=== PATIENT | female | born 1955 | race Caucasian/White ===

== ENCOUNTER → 2019-10-09 13:53 | Outpatient (CLI) | payer MEDICARE, SELFPAY ==
--- NOTE | 2019-10-09 | DI.RAD.S_ITS ---
PROCEDURE: XR KNEE RT 3V INDICATIONS: fall, unable to bear weight, rt knee TECHNIQUE: 3 views of the knee were acquired. COMPARISON: None. FINDINGS: Bones: No dislocations. No suspicious bony lesions. There is a vertically oriented fracture involving the lateral facet of the patellofemoral joint, which on the lateral view is associated with a moderate joint effusion Soft tissues: No joint effusion. No suspicious soft tissue calcifications. IMPRESSION: Vertically oriented minimally displaced patellar fracture laterally, secondary joint effusion is associated. No intra-articular loose body. Note: It was difficult to contact the ordering health care provider and a phone number was obtained of the patient. I was able to speak personally with the patient and informed her that she does in fact have a fracture that may necessitate orthopedic surgical consultation or intervention. The patient provided a phone number to the office through which the practitioner provides health care and I also personally contacted the credit support counselor at that office with this information. I have requested that the practitioner contact the patient directly for further consultation. Dictated by: James Newton M.D. on 10/09/2019 at 14:38 Approved by: James Newton M.D. on 10/09/2019 at 14:39
== END ==
PROVIDERS: Referring Provider Nurse Practitioner Family; Visit Provider Nurse Practitioner Family
DX: M25.561 Pain in right knee (principal); S82.091A Other fracture of right patella, initial encounter for closed fracture; W19.XXXA Unspecified fall, initial encounter
CPT/HCPCS: 73562

== ENCOUNTER 2020-08-15 19:58 | Emergency (ER) | payer MEDICARE, SELFPAY ==
[2020-08-15] VITALS (10 sets, daily range): BP systolic 154–206; BP diastolic 74–91; PULSE 58–91; RESP 16–24; TEMP 36.5; O2SAT 91–100; BMI 25.9
--- NOTE | 2020-08-15 20:07 | DI.RAD.S_ITS ---
PROCEDURE: XR CHEST 1V INDICATIONS: chest pain TECHNIQUE: One view of the chest was acquired. COMPARISON: None. FINDINGS: Surgical changes and devices: None. Lungs and pleura: Lungs are clear. No pleural effusions or pneumothorax. Mediastinum: Mediastinal contours appear normal. Heart size is normal. Bones and chest wall: No suspicious bony lesions. Overlying soft tissues appear unremarkable. IMPRESSION: No acute cardiopulmonary abnormalities or focal airspace disease. There are no imaging findings to explain patient's chest pain. Dictated by: Kody Lima M.D. on 08/15/2020 at 20:39 Approved by: Kody Lima M.D. on 08/15/2020 at 20:40
[2020-08-15 20:25] LABS: Add Manual Diff / Slide Review NO; Basophils Absolute Auto 100 /uL (0-100); Basophils Percent Auto 1.5 % (0-2); Eosinophils Absolute Auto 100 /uL (0-450); Eosinophils Percent Auto 1.2 % (2-4); Hematocrit 44.8 % (36-46); Hemoglobin 15.3 g/dL (12.0-16.0); INR 1.1 (0.9-1.3); Lymphocytes Absolute Auto 3000 /uL (1100-4500); Mean Corpuscular HGB Conc 34.2 % (30-36); Mean Corpuscular Hemoglobin 32.1 PG (26-34); Mean Corpuscular Volume 93.9 fL (80-100); Monocytes Absolute Auto 400 /uL (0-900); Monocytes Percent Auto 5.8 % (3-14); Neutrophils Absolute Auto 4000 /uL (1500-7000); Neutrophils Percent Auto 52.5 % (50-75); Platelet Count 234 X10^3/uL (150-400); Prothrombin Time 12.3 SECONDS (10.1-12.7); Red Blood Cell Count 4.77 X10^6/uL (4.0-5.2); Red Cell Distribution Width 13.3 % (11.6-14.8); White Blood Cell Count 7.6 X10^3/uL (4.5-11.0)
[2020-08-15 20:28] LABS: PTT Partial Thromboplastin Tim 32 SECONDS (26.4-36.2)
[2020-08-15 20:33] LABS: Alanine Aminotransferase 15 IU/L (<35); Albumin 4.6 g/dL (3.5-5.0); Albumin Globulin Ratio 1.5 (1.0-2.8); Alkaline Phosphatase 98 U/L (38-126); Aspartate Aminotransferase 29 IU/L (14-36); BUN Creatinine Ratio 20.4 (6-22); Bilirubin Total 0.2 mg/dL (0.2-1.3); Blood Urea Nitrogen 20 mg/dL (7-17); Calcium 9.7 mg/dL (8.4-10.2); Carbon Dioxide 33 mmol/L (22-32); Chloride 101 mmol/L (98-107); Creatine Kinase 70 U/L (30-135); Estimated Glomerular Filt Rate 56.6 mL/min (>60); Globulin 3.1 g/dL (1.7-4.1); Glucose 143 mg/dL (80-110); HEMOLYSIS < 15 (0-50); Lipase 231 U/L (23-300); Sodium 139 mmol/L (137-145); Total Protein 7.7 g/dL (6.3-8.2)
[2020-08-15 20:44] LABS: Troponin I < 0.012 ng/mL (0.01-0.034)
--- NOTE | 2020-08-15 21:11 | ED.CHESTPAIN ---
HPI - Chest Pain General Chief Complaint: Chest Pain Stated Complaint: panic attack or heart attack, she is not sure Time Seen by Provider: 08/15/20 21:11 Source: patient and other (friend Geraldine at bedside) Mode of arrival: Ambulatory Limitations: no limitations History of Present Illness HPI narrative: This is a 65-year-old female comes emergency department with complaint of possible panic attack but patient states it feels different from her typical. Patient states that she developed and sweats and hot flashes this evening. She developed some epigastric abdominal pain, breast pain which she describes as being right around the area of the areola but also some discomfort in her back. As well as a little discomfort in her anterior chest. Patient is unaware if she has had any actual fevers. She denies any shortness of breath. She denies any nausea, no vomiting. No diarrhea constipation. She has not had any urinary symptoms. Patient states it started about 5 or 530 this evening. She states that it is improved but is still present. She states she did have a fall last week. Patient states she has had multiple falls and has been following up with a neurologist and neuro psychiatrist for testing. 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 She was told that they believe these falls are secondary to this. Patient states she is not on medications otherwise for anything else. She sets other than her brain tumor excision she has had hand surgery for traumatic injury. She denies tobacco, alcohol or illicit. Her primary care physician is CHUYITA Kelly who works in Dr. Chatman's office. Related Data Allergies Allergy/AdvReac Type Severity Reaction Status Date / Time tetracycline Allergy Verified 08/15/20 20:06 Review of Systems Review of Systems ROS Unobtainable: All systems reviewed & are unremarkable except as noted in HPI and below Patient History Social History Smoking Status: Unknown if ever smoked Smoking Status: Unknown if ever smoked alcohol intake frequency: a few times a month Substance Use Type: does not use Exam Narrative Exam Narrative: GENERAL: Alert and oriented x three, thin elderly appearing female in mild distress. HEENT: Head normocephalic, atraumatic, EOMI, pupils reactive, face symmetric, moist mucous membranes NECK: Supple, full range of motion CARDIOVASCULAR: Regular rate and rhythm without murmurs, rubs or gallops. Patient has reproducible anterior chest pain at the sternum. Unable to reproduce chest discomfort in the breast tissue. There is no masses appreciated on breast exam. RESPIRATORY: Breath sounds equal bilaterally, no wheezes rales or rhonchi. ABDOMEN: Soft, nontender. Normoactive bowel sounds all 4 quadrants. No guarding or rebound, rigidity, no mass : No CVA tenderness BACK: No cervical, thoracic or lumbar vertebral point tenderness. EXTREMITIES: Normal range of motion, no clubbing or edema. Neurovascularly intact NEUROLOGICAL: Cranial nerves II through XII grossly intact. Moving all extremities. Patient has mild tremor. SKIN: Warm, dry, no petechiae, no rashes or lesions. Initial Vital Signs Initial Vital Signs: Vital Signs Temperature 97.7 F 08/15/20 20:00 Pulse Rate 91 H 08/15/20 20:00 Respiratory Rate 16 08/15/20 20:00 Blood Pressure 191/91 H 08/15/20 20:00 Pulse Oximetry 96 08/15/20 20:00 Scores HEART Score Heart Score history: Slightly Suspicious Heart Score EKG: Non-Specific repolarization disturbance Heart Score Age: > or = 65 years old Heart Score risk factors: No known risk factors Heart Score troponin: < or = to normal limit Heart Score Total: 3 Course Orders Ordered: ED Orders 08/15/20 21:45 COVID19 Stat 08/15/20 22:00 Urine Microscopic Stat 08/15/20 22:16 Troponin I Stat 08/15/20 23:01 EKG-12 Lead Stat Reevaluation(s) Reevaluation #1: patient BP has improved, reviewed labs and imaging today. Discussed with patient I do not have a clear cause for her symptoms but have not found any acute changes. Patient feels comfortable returning home at this time. Plan for return precautions. She has follow-up with her primary care on Monday at 9:00 a.m. Patient BP also improved in the department. Time: 23:17 Vital Signs Vital signs: Vital Signs - 8 hr 08/15/20 21:30 08/15/20 21:42 08/15/20 22:03 Pulse Rate 69 59 L 59 L Respiratory Rate 20 23 23 Blood Pressure 206/86 H Pulse Oximetry 97 97 91 08/15/20 22:04 03/06/21 22:30 08/15/20 23:00 Pulse Rate 58 L 65 64 Respiratory Rate 18 23 22 Blood Pressure 173/74 H 163/85 H 154/80 H Pulse Oximetry 97 97 97 MDM - Chest Pain Lab Data Attestation: I reviewed the patient's lab results. Result diagrams: 08/15/20 20:10 08/15/20 20:10 Labs: Lab Results 08/15/20 08/15/20 08/15/20 Range/Units 20:10 20:10 20:10 WBC 7.6 (4.5-11.0) X10^3/uL RBC 4.77 (4.0-5.2) X10^6/uL Hgb 15.3 (12.0-16.0) g/dL Hct 44.8 (36-46) % MCV 93.9 (80-100) fL MCH 32.1 (26-34) PG MCHC 34.2 (30-36) % RDW 13.3 (11.6-14.8) % Plt Count 234 (150-400) X10^3/uL Neut % (Auto) 52.5 (50-75) % Lymph % (Auto) 39.0 (25-40) % Wal[place] % (Auto) 5.8 (3-14) % Eos % (Auto) 1.2 L (2-4) % Baso % (Auto) 1.5 (0-2) % Neut # (Auto) 4000 (8745-9403) /uL Lymph # (Auto) 3000 (6135-4877) /uL [place] # (Auto) 400 (0-900) /uL Eos # (Auto) 100 (0-450) /uL Baso # (Auto) 100 (0-100) /uL PT 12.3 (10.1-12.7) SECONDS INR 1.1 (0.9-1.3) APTT 32 (26.4-36.2) SECONDS Sodium 139 (137-145) mmol/L Potassium 4.0 (3.4-5.1) mmol/L Chloride 101 (98-107) mmol/L Carbon Dioxide 33 H (22-32) mmol/L BUN 20 H (7-17) mg/dL Creatinine 0.98 (0.52-1.04) mg/dL Estimated GFR 56.6 L (>60) mL/min BUN/Creatinine Ratio 20.4 (6-22) Glucose 143 H (80-110) mg/dL Calcium 9.7 (8.4-10.2) mg/dL Total Bilirubin 0.2 (0.2-1.3) mg/dL AST 29 (14-36) IU/L ALT 15 (<35) IU/L Alkaline Phosphatase 98 (38-126) U/L Total Creatine Kinase 70 (30-135) U/L CK-MB (CK-2) TNP CK-MB (CK-2) Rel Index TNP Troponin I < 0.012 (0.01-0.034) ng/mL Total Protein 7.7 (6.3-8.2) g/dL Albumin 4.6 (3.5-5.0) g/dL Globulin 3.1 (1.7-4.1) g/dL Albumin/Globulin Ratio 1.5 (1.0-2.8) Lipase 231 (23-300) U/L Urine RBC (0-5/HPF) Urine WBC (0-5/HPF) Urine Bacteria (None) Ur Culture Indicated? SARS-CoV-2 (PCR) (Negative) 08/15/20 08/15/20 08/15/20 Range/Units 21:45 22:00 22:16 WBC (4.5-11.0) X10^3/uL RBC (4.0-5.2) X10^6/uL Hgb (12.0-16.0) g/dL Hct (36-46) % MCV (80-100) fL MCH (26-34) PG MCHC (30-36) % RDW (11.6-14.8) % Plt Count (150-400) X10^3/uL Neut % (Auto) (50-75) % Lymph % (Auto) (25-40) % [place] % (Auto) (3-14) % Eos % (Auto) (2-4) % Baso % (Auto) (0-2) % Neut # (Auto) (5171-4815) /uL Lymph # (Auto) (7942-5064) /uL Waldo # (Auto) (0-900) /uL Eos # (Auto) (0-450) /uL Baso # (Auto) (0-100) /uL PT (10.1-12.7) SECONDS INR (0.9-1.3) APTT (26.4-36.2) SECONDS Sodium (137-145) mmol/L Potassium (3.4-5.1) mmol/L Chloride (98-107) mmol/L Carbon Dioxide (22-32) mmol/L BUN (7-17) mg/dL Creatinine (0.52-1.04) mg/dL Estimated GFR (>60) mL/min BUN/Creatinine Ratio (6-22) Glucose (80-110) mg/dL Calcium (8.4-10.2) mg/dL Total Bilirubin (0.2-1.3) mg/dL AST (14-36) IU/L ALT (<35) IU/L Alkaline Phosphatase (38-126) U/L Total Creatine Kinase (30-135) U/L CK-MB (CK-2) CK-MB (CK-2) Rel Index Troponin I < 0.012 (0.01-0.034) ng/mL Total Protein (6.3-8.2) g/dL Albumin (3.5-5.0) g/dL Globulin (1.7-4.1) g/dL Albumin/Globulin Ratio (1.0-2.8) Lipase (23-300) U/L Urine RBC 0-1/hpf (0-5/HPF) Urine WBC None seen (0-5/HPF) Urine Bacteria None seen (None) Ur Culture Indicated? Cult not indicated SARS-CoV-2 (PCR) Negative (Negative) Urine Dip Bedside Urine Glucose Negative Bedside Urine Bilirubin - Negative Bedside Urine Ketone - Negative Urine Specific [place] 1.025 Bedside Urine Occult Blood - Negative Bedside Urine pH 6 Bedside Urine Protein - Negative Bedside Urine Urobilinogen - Negative Bedside Urine Nitrite - Negative Bedside Urine Leukocytes - Negative Esterase Imaging Data Chest x-ray: Radiologist's Impression: [address] [id number] ReportSigned Patient: Nettie Romeo JMR#: [id number]: 4Acct:[id number]/Sex: 65 / FDate of Service: 08/15/20Loc: EDAccession Number: [id number] Procedure: XR chest 1V Ordering Provider: Honey Hawkins D.O. PROCEDURE: XR CHEST 1V INDICATIONS: chest pain TECHNIQUE: One view of the chest was acquired. COMPARISON: None. FINDINGS: Surgical changes and devices: None. Lungs and pleura: Lungs are clear. No pleural effusions or pneumothorax. Mediastinum: Mediastinal contours appear normal. Heart size is normal. Bones and chest wall: No suspicious bony lesions. Overlying soft tissues appear unremarkable. IMPRESSION: No acute cardiopulmonary abnormalities or focal airspace disease. There are no imaging findings to explain patient's chest pain. Dictated by: Kody Lima M.D. on 08/15/2020 at 20:39 Approved by: Kody Lima M.D. on 08/15/2020 at 20:40 ECG Data Attestation: I personally reviewed and interpreted this ECG as follows: Prior ECG tracings: not available for review Interpretation: Junctional rhythm although patient has some motion artifact so may in fact be a sinus rhythm. Nonspecific change. Ventricular rate of 75 QRS 80 and QTC of 464. Patient had a second EKG obtained at the same time which does appear to show p waves with qrs complexes but also has movement artifact. EKG 2. Sinus bradycardia rate of 56 P are 152 QRS 86 and QTC of 426. Nonspecific EKG change. Discharge Plan Departure Patient Disposition: Home Clinical Impression: Atypical chest pain Instructions: DI for Atypical Chest Pain Activity Restrictions/Additional Instructions: Follow up with your physician this week for recheck at your appointment on Monday at 9am. You may take tylenol up to 1000mg every 8 hours as needed for pain. If you continue to have pain localized to the breasts mammography is recommended for further workup. Return to the ER for fevers, lightheadedness or passing out, worsening chest pain or pressure, shortness of breath, new redness, increasing pain in her breast, signs of lumps or infection, persistent vomiting, black or bloody stools or other new or concerning symptoms.
[2020-08-15 22:08] LABS: COVID19 -Nasal RAPID Negative (Negative)
[2020-08-15 22:20] LABS: Bacteria Urine None Seen; WBC Urine None Seen (0-5/HPF)
[2020-08-15 22:27] LABS: Culture Indicated Urine Cult Not Indicated; RBC Urine 0-1/HPF (0-5/HPF)
[2020-08-15 22:49] LABS: Troponin I < 0.012 ng/mL (0.01-0.034)
== END 2020-08-15 23:22 | disposition home or self-care (01) ==
PROVIDERS: Emergency Provider Emergency Medicine
DX: R07.89 Other chest pain (principal); R10.13 Epigastric pain; Z20.822 Contact with and (suspected) exposure to COVID-19
CPT/HCPCS: 36415; 71045; 80053; 81003; 81015; 82550; 83690; 84484; 85025; 85610; 85730; 87635; 93005; 99283; 99284; C9803

== ENCOUNTER → 2020-08-19 14:26 | Outpatient (CLI) | payer MEDICARE, SELFPAY ==
--- NOTE | 2020-08-19 14:29 | DI.CT.S_ITS ---
PROCEDURE: CT HEAD/BRAIN WO CON INDICATIONS: Benign neoplasm of cerebral meninges TECHNIQUE: Noncontrast 4.5 mm thick angled axial sections acquired from the foramen magnum to the vertex, with coronal and sagittal reformats. For radiation dose reduction, the following was used: automated exposure control, adjustment of mA and/or kV according to patient size. COMPARISON: [facility], CR, XR CHEST 1V, 08/15/2020, 20:29. FINDINGS: Image quality: Excellent. CSF spaces: Basal cisterns are patent. No extra-axial fluid collections. Ventricles are normal in size and shape. Brain: No midline shift. No intracranial masses or hemorrhage. Ching-white matter interface is normal. Skull and face: Calvarium and visualized facial bones are intact, without suspicious lesions. Prior craniotomy midline parietal calvarium. No underlying mass. Sinuses: Visualized sinuses and mastoids are clear. IMPRESSION: Craniotomy at the posterior parietal region, no definite mass beneath. Please note that contrast-enhanced MR scanning generally is utilized if meningioma has been previously present. Residual meningioma generally is isodense to brain parenchyma and difficult to differentiate without MR contrast-enhanced technique. Dictated by: James Newton M.D. on 08/19/2020 at 14:28 Approved by: James Newton M.D. on 08/19/2020 at 14:30
== END ==
PROVIDERS: Referring Provider Family Medicine; Visit Provider Family Medicine
DX: D32.0 Benign neoplasm of cerebral meninges (principal); R29.818 Other symptoms and signs involving the nervous system
CPT/HCPCS: 70450

== ENCOUNTER → 2021-11-17 08:11 | Outpatient (CLI) | payer MEDICARE, SELFPAY ==
--- NOTE | 2021-11-17 08:14 | DI.CT.S_ITS ---
PROCEDURE: CT HEAD/BRAIN WO CON INDICATIONS: Hemicrania continua TECHNIQUE: Noncontrast 4.5 mm thick angled axial sections acquired from the foramen magnum to the vertex, with coronal and sagittal reformats. For radiation dose reduction, the following was used: automated exposure control, adjustment of mA and/or kV according to patient size. COMPARISON: [facility], CT, CT HEAD/BRAIN WO CON, 08/19/2020, 14:52. FINDINGS: These images again demonstrate prior right parietal craniotomy near the posterior vertex. No convincing evidence of an abnormal adjacent mass fluid collection. No acute intracranial hemorrhage or abnormal extra-axial fluid collection otherwise. No findings of mass effect or midline shift. Normal ventricular caliber and position. No gross orbital abnormality. Clear paranasal sinuses and mastoid air cells. IMPRESSION: Redemonstration of right parietal craniotomy near the vertex. No acute intracranial abnormality identified. Dictated by: David Cruz M.D. on 11/17/2021 at 9:17 Approved by: David Cruz M.D. on 11/17/2021 at 9:20
== END ==
PROVIDERS: Referring Provider Family Medicine; Visit Provider Family Medicine
DX: G44.51 Hemicrania continua (principal); Z98.890 Other specified postprocedural states
CPT/HCPCS: 70450

== ENCOUNTER → 2023-06-10 07:29 | Outpatient (CLI) | payer MEDICARE, SELFPAY ==
[2023-06-10 09:06] LABS: COVID-19 CEPHEID 4-PLEX PCR Negative (Negative); Influenza A - CEPHEID Flu A NEGATIVE (NEGATIVE); Influenza B - CEPHEID Flu B NEGATIVE (NEGATIVE); Respiratory Syncytial Virus Negative (Negative)
== END ==
PROVIDERS: Visit Provider Student in an Organized Health Care Education/Training Program
DX: R30.0 Dysuria (principal); R50.9 Fever, unspecified
CPT/HCPCS: 0241U; 87086

== ENCOUNTER 2023-06-10 08:25 | Emergency (ER) | payer MEDICARE, SELFPAY ==
[2023-06-10] VITALS (11 sets, daily range): BP systolic 159–170; BP diastolic 70–81; PULSE 64–78; RESP 7–22; TEMP 36.9; O2SAT 88–99; BMI 29.8
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
[2023-06-10] MEDS: SODIUM CHLORIDE 0.9% 1,000 ML 1000 ML IV (09:53)
[2023-06-10 10:13] LABS: Add Manual Diff / Slide Review NO; Basophils Absolute Auto 100 /uL (0-100); Basophils Percent Auto 0.8 % (0-2); Eosinophils Absolute Auto 100 /uL (0-450); Eosinophils Percent Auto 0.9 % (2-4); Hematocrit 41.9 % (36-46); Hemoglobin 14.1 g/dL (12.0-16.0); Lymphocytes Absolute Auto 1400 /uL (1100-4500); Lymphocytes Percent Auto 21.4 % (25-40); Mean Corpuscular HGB Conc 33.7 % (30-36); Mean Corpuscular Hemoglobin 31.7 PG (26-34); Mean Corpuscular Volume 94.3 fL (80-100); Monocytes Absolute Auto 500 /uL (0-900); Monocytes Percent Auto 7.3 % (3-14); Neutrophils Absolute Auto 4500 /uL (1500-7000); Neutrophils Percent Auto 69.6 % (50-75); Platelet Count 230 X10^3/uL (150-400); Red Blood Cell Count 4.44 X10^6/uL (4.0-5.2); Red Cell Distribution Width 13.7 % (11.6-14.8); White Blood Cell Count 6.5 X10^3/uL (4.5-11.0)
[2023-06-10 10:23] LABS: Alanine Aminotransferase 16 IU/L (<35); Albumin Globulin Ratio 1.2 (1.0-2.8); Alkaline Phosphatase 101 U/L (38-126); Aspartate Aminotransferase 28 IU/L (14-36); BUN Creatinine Ratio 27.1 (6-22); Bilirubin Total 0.5 mg/dL (0.2-1.3); Blood Urea Nitrogen 23 mg/dL (7-17); Calcium 9.5 mg/dL (8.4-10.2); Carbon Dioxide 28 mmol/L (22-32); Chloride 103 mmol/L (98-107); Estimated Glomerular Filt Rate > 60 mL/min (>60); Globulin 3.4 g/dL (1.7-4.1); Glucose 101 mg/dL (80-110); HEMOLYSIS < 15 (0-50); Lipase 107 U/L (23-300); Potassium 4.3 mmol/L (3.4-5.1); Sodium 136 mmol/L (137-145); Total Protein 7.4 g/dL (6.3-8.2)
[2023-06-10 11:37] LABS: RBC Urine None Seen (0-5/HPF); WBC Urine None Seen (0-5/HPF)
[2023-06-10 11:38] LABS: Amorphous Sediment Urine 1+; Bacteria Urine None Seen; Culture Indicated Urine Cult Not Indicated; Squamous Epithelial Cell Urine None Seen (0-5/HPF)
== END 2023-06-10 12:09 | disposition home or self-care (01) ==
PROVIDERS: Emergency Provider Emergency Medicine Emergency Medical Services
DX: J06.9 Acute upper respiratory infection, unspecified (principal); R10.31 Right lower quadrant pain; R31.9 Hematuria, unspecified; Z20.822 Contact with and (suspected) exposure to COVID-19; R30.0 Dysuria; R50.9 Fever, unspecified
CPT/HCPCS: 0241U; 36415; 80053; 81003; 81015; 83690; 85025; 87086; 96360; 96361; 99284